=== PATIENT | male | born 1990 | race Caucasian/White ===

== ENCOUNTER 2022-04-03 11:03 | Emergency (ER) | payer BC, OTHER ==
[2022-04-03 11:22] VITALS: BP 122/79; PULSE 75; RESP 20; TEMP 97.8; BMI 33.5
== END 2022-04-03 12:01 | disposition home or self-care (01) ==
LOC: JER 11:03 → JERFT 11:03
DX: S09.90XA Unspecified injury of head, initial encounter (principal); W22.8XXA Striking against or struck by other objects, initial encounter
CPT/HCPCS: 99281-25

== ENCOUNTER 2023-02-23 07:52 | Emergency (ER) | payer BC ==
[2023-02-23] MEDS ORDERED: SODIUM CHLORIDE 1,000 ML IV STA (07:57)
[2023-02-23 07:58] VITALS: RESP 16; BMI 30.4
[2023-02-23 08:35] LABS: HEMATOCRIT 46.9 % (35.4-49); HEMOGLOBIN 15.9 G/dL (11.7-16.9); MCH 29.9 pg (25.7-33.7); MCHC 33.9 g/dl (32.0-35.9); MEAN CELL VOLUME 88.2 fl (80-96); MEAN PLT VOLUME 8.7 fl (7.5-11.1); PLATELET COUNT 330.9 10^3/uL (134-434); RBC 5.32 10^6/uL (4.00-5.60); RDW 13.5 % (11.9-15.9); WHITE BLOOD COUNT 14.2 10^3/uL (4.0-10.8)
[2023-02-23 08:51] LABS: ALBUMIN 4.4 g/dl (3.4-5.0); BILIRUBIN,TOTAL 0.8 mg/dl (0.2-1); CALCIUM 9.9 mg/dl (8.5-10.1); CREATININE 1.1 mg/dl (0.6-1.3); POTASSIUM 4.5 mmol/L (3.5-5.1); TOT PROT 7.3 g/dl (6.4-8.2)
[2023-02-23 09:06] VITALS: BP 126/85; PULSE 84; TEMP 98
[2023-02-23 10:15] LABS: PLATELET ESTIMATE ADEQUATE
== END 2023-02-23 09:18 | disposition home or self-care (01) ==
LOC: FER 07:52
PROC: 3E0337Z Introduction of Electrolytic and Water Balance Substance into Peripheral Vein, Percutaneous Approach (ICD-10-PCS; principal; 2023-02-23)
DX: R05.9 Cough, unspecified (principal); R43.9 Unspecified disturbances of smell and taste; J45.21 Mild intermittent asthma with (acute) exacerbation; Z20.822 Contact with and (suspected) exposure to COVID-19
CPT/HCPCS: 0241U-QW; 36415; 71046-TC-FY; 80053; 85025; 87040; 99284-25